=== PATIENT | female | born 1995 | race Caucasian/White ===

== ENCOUNTER 2021-10-12 18:00 | Emergency (ER) | payer OTHER ==
[2021-10-12 18:56] LABS: HEMOGLOBIN 14.6 gm/dl (12.3-15.3); RED BLOOD COUNT 4.76 M/UL (4.00-5.10)
[2021-10-12 19:16] LABS: BUN/CREATININE RATIO 12 (0-10)
[2021-10-12] MEDS ORDERED: LOPRESSOR 25 MG25 MG PO (20:08)
== END 2021-10-12 20:30 | disposition home or self-care (01) ==
LOC: ER1 18:00
PROVIDERS: Nurse Practitioner
DX: R06.02 Shortness of breath (principal); R00.2 Palpitations
CPT/HCPCS: 71045; 80053; 82550; 82553; 83735; 84100; 84484; 85025; 85379; 93005; 99285